=== PATIENT | male | born 1960 | race Two or more races ===

== ENCOUNTER → 2021-04-28 | Day surgery (SDC) | payer OTHER ==
[~2021-04-28] MED LIST: MIRALAX17 GM PO; NEURONTIN300 MG PO; TYLENOL ARTHRI650 MG PO; ULTRAM50 MG PO
== END | disposition home or self-care (01) ==
LOC: ADM 04-25 09:15 → CIR.AMB 05:45
PROVIDERS: ATTEND Surgery
DX: K40.90 Unilateral inguinal hernia, without obstruction or gangrene, not specified as recurrent (principal); Z87.891 Personal history of nicotine dependence